=== PATIENT | male | born 1955 | race Caucasian/White ===

== ENCOUNTER 2016-08-25 21:36 | Emergency (ER) | payer OTHER ==
[2016-08-25] MEDS ORDERED: ALBUTEROL 8 GM INHALER INH STA (22:20)
[2016-08-25] MEDS ORDERED: DEXAMETHASONE 10 MG/ML VIAL PO STA (22:21)
[2016-08-25] MEDS ORDERED: guaiFENesin/CODEINE 5 ML UDC PO STA (22:22)
[2016-08-25] MEDS ORDERED: DEXAMETHASONE 10 MG/ML VIAL ONE (22:27)
[2016-08-25] MEDS ORDERED: guaiFENesin/CODEINE 5 ML UDC ONE (22:27)
[2016-08-25] MEDS ORDERED: ALBUTEROL 8 GM INHALER INH ONE (22:45)
[2016-08-26] MEDS ORDERED: AZITHROMYCIN 250 MG TABLET PO STA (00:10)
[2016-08-26] MEDS ORDERED: AZITHROMYCIN 250 MG TABLET PO ONE (00:12)
== END 2016-08-26 00:17 | disposition home or self-care (01) ==
DX: J44.9 Chronic obstructive pulmonary disease, unspecified (principal); R07.2 Precordial pain; F17.200 Nicotine dependence, unspecified, uncomplicated
CPT/HCPCS: 36415; 71020; 80053; 83690; 84484; 93005; 93010; 94640; 99283; 99284; A9270

== ENCOUNTER 2017-03-10 09:42 | Emergency (ER) | payer OTHER ==
[2017-03-10 10:37] LABS: BASOPHILS # (AUTO) 0.1 10^3/uL (0.0-0.1); BASOPHILS % (AUTO) 0.6 %; EOSINOPHILS % (AUTO) 0.1 %; HCT - HEMATOCRIT 46.7 % (42.0-52.0); HGB - HEMOGLOBIN 15.3 g/dL (14.0-18.0); MEAN CORPUSCULAR HGB CONC 32.8 g/dL (32.0-36.0); MEAN CORPUSCULAR VOLUME 85.3 fL (80.0-94.0); MEAN PLATELET VOLUME 9.2 fL (7.4-11.4); MONOCYTES # (AUTO) 0.4 10^3/uL (0.0-1.0); MONOCYTES % (AUTO) 2.7 %; NEUTROPHILS # (AUTO) 13.1 10^3/uL (1.5-6.6); NEUTROPHILS % (AUTO) 89.6 %; RED BLOOD COUNT 5.48 10^6/uL (4.70-6.10); RED CELL DISTRIBUTION WIDTH 14.4 % (12.0-15.0); UNCORRECTED WHITE BLOOD COUNT 14.6 x10^3/uL; WHITE BLOOD COUNT 14.6 x10^3/uL (4.8-10.8)
[2017-03-10] MEDS ORDERED: SODIUM CHLORIDE FLUSH 0.9% 10 ML SYRINGE IVP ONE ×3 (11:00→13:30)
--- NOTE | 2017-03-10 11:08 | ED Physician Documentation ---
PD HPI ABD PAIN - Stated complaint Stated Complaint: STOMACH PAIN - Chief complaint Chief Complaint: Abd Pain - History obtained from History obtained from: Patient - History of Present Illness Timing - onset: Yesterday Timing - details: Gradual onset, Still present, Still present in ED Quality: Aching, Pain Location: Periumbilical, LLQ Radiation: No: Left flank, Right flank Improved by: Position. No: Eating Worsened by: Moving, Position, Palpation. No: Eating, Breathing Associated symptoms: Nausea. No: Fever, Vomiting, Diarrhea Similar symptoms before: Diagnosis (diverticulitis by colonoscopy, per ) Recently seen: Not recently seen Review of Systems Constitutional: denies: Fever, Chills Nose: denies: Rhinorrhea / runny nose, Congestion Throat: denies: Sore throat Cardiac: denies: Chest pain / pressure Respiratory: denies: Cough GI: reports: Nausea. denies: Abdominal Pain, Vomiting, Diarrhea Musculoskeletal: denies: Neck pain, Back pain, Extremity swelling Neurologic: denies: Focal weakness, Numbness, Near syncope PD PAST MEDICAL HISTORY - Past Medical History Cardiovascular: None Respiratory: COPD Neuro: None Endocrine/Autoimmune: None GI: None : None HEENT: None Psych: None Musculoskeletal: None Derm: None - Past Surgical History Past Surgical History: No - Present Medications Home Medications: Ambulatory Orders Medication Instructions Recorded Confirmed Amox/Clav 875/125 [Augmentin] 1 each PO Q12H #10 tablet 03/10/17 Docusate Sodium 100 mg PO DAILY #15 capsule 03/10/17 HYDROcod/ACETAM 5/325 [Topping 5/325] 1 tab PO Q6H PRN #15 tablet 03/10/17 Naproxen 375 mg PO BID #15 tablet 03/10/17 - Allergies Allergies/Adverse Reactions: Allergies Allergy/AdvReac Type Severity Reaction Status Date / Time No Known Drug Allergies Allergy Verified 08/25/16 21:49 - Social History Does the pt smoke?: Yes Smoking Status: Current every day smoker Does the pt drink ETOH?: Yes Does the pt have substance abuse?: No - Immunizations Immunizations are current?: Yes - POLST Patient has POLST: No PD ED PE NORMAL - Vitals Vital signs reviewed: Yes - General General: Alert and oriented X 3, Well developed/nourished, Other (appears in some pain) - HEENT HEENT: Ears normal, Pharynx benign - Neck Neck: Supple, no meningeal sign, No adenopathy - Cardiac Cardiac: RRR, No murmur - Respiratory Respiratory: Clear bilaterally - Abdomen Abdomen: Normal bowel sounds, Soft, Non distended, No organomegaly, Other ( tender periumbilical to left abd without percussion nor rebound. No hernia. Not tender in epigastric area. ) Results - Vitals Vitals: Vital Signs - 24 hr 03/10/17 03/10/17 03/10/17 09:53 11:40 13:19 Temperature 36.8 C 36.3 C L 36.9 C Heart Rate 65 61 61 Respiratory 14 16 15 Rate Blood Pressure 141/95 H 143/101 H 119/86 H O2 Saturation 100 99 98 Oxygen O2 Source Room air - Labs Labs: Laboratory Tests 03/10/17 03/10/17 03/10/17 10:17 10:17 11:05 WBC 14.6 H RBC 5.48 Hgb 15.3 Hct 46.7 MCV 85.3 MCH 28.0 MCHC 32.8 RDW 14.4 Plt Count 229 MPV 9.2 Neut # 13.1 H Lymph # 1.0 L [place] # 0.4 Eos # 0.0 Baso # 0.1 Absolute Nucleated RBC 0.01 Nucleated RBC % 0.0 Sodium 136 Potassium 3.9 Chloride 101 Carbon Dioxide 24 Anion Gap 11.0 BUN 19 Creatinine 0.9 Estimated GFR (MDRD) 86 L Glucose 125 H Calcium 9.0 Total Bilirubin 1.1 H AST 19 ALT 21 Alkaline Phosphatase 70 Total Protein 7.2 Albumin 4.0 Globulin 3.2 Albumin/Globulin Ratio 1.3 Lipase 25 Urine Color YELLOW Urine Clarity CLEAR Urine pH 6.0 Ur Specific [place] 1.025 Urine Protein NEGATIVE Urine Glucose (UA) NEGATIVE Urine Ketones TRACE Urine Occult Blood NEGATIVE Urine Nitrite NEGATIVE Urine Bilirubin NEGATIVE Urine Urobilinogen 0.2 (NORMAL) Ur Leukocyte Esterase NEGATIVE Ur Microscopic Review NOT INDICATED Urine Culture Comments NOT INDICATED - Rads (name of study) abd/pelvic CT Radiology: Prelim report reviewed (thickening of gastric wall; otherwise normal) PD MEDICAL DECISION MAKING - ED course Complexity details: reviewed results (no acute process seen; his pain is not in area of stomach so think the gastric thickening is negative. he had had EGD without findings last year. Had diverticulitis as cause of prior episode, though had not shown on studies, so given his pain in mid to left abd and elevated WBC, I would consider early diverticulitis. CT would not be 100% sensitive for this finding. ), considered differential, d/w patient Departure - Departure Disposition: 01 Home, Self Care Clinical Impression: Abdominal pain Qualifiers: Abdominal location: periumbilical Qualified Code(s): R10.33 - Periumbilical pain Clinical Impression: (Ruled Out): Appendicitis Condition: Stable Record reviewed to determine appropriate education?: Yes Instructions: ED Abdominal Pain Unkn Cause Prescriptions: Amox/Clav 875/125 [Augmentin] 1 each PO Q12H #10 tablet Docusate Sodium 100 mg PO DAILY #15 capsule HYDROcod/ACETAM 5/325 [Topping 5/325] 1 tab PO Q6H PRN #15 tablet PRN Reason: Pain Naproxen 375 mg PO BID #15 tablet Comments: Your CT scan does not show an obvious cause of the pain. There may be just some inflammation throughout the colon. However there would be concern for early infection given the elevated white count on your blood test. The appendix and gallbladder are seen well and are normal. There is no obvious diverticulitis. We will go with naproxen twice daily for a week as an anti- inflammatory. Docusate stool softener daily for 1-2 weeks. Add Augmentin twice daily for concern of infection. Add hydrocodone if needed for pain. Recheck if not improved over the next 2-3 days and return sooner if worsening symptoms. Discharge Date/Time: 03/10/17 13:45
[2017-03-10 11:21] LABS: BILIRUBIN,URINE NEGATIVE (NEGATIVE)
[2017-03-10 11:24] LABS: UA CHARGE (STRIP ONLY) YES; UR CULTURE IF IND NOT INDICATED
[2017-03-10] MEDS ORDERED: ONDANSETRON 4 MG/2 ML VIAL IVP STA (11:27)
[2017-03-10] MEDS ORDERED: SODIUM CHLORIDE 0.9% 1,000 ML IV ONE (11:27)
[2017-03-10] MEDS ORDERED: HYDROmorphone 1 MG/ML CARPUJECT IVP STA (11:28)
[2017-03-10 11:33] LABS: ALBUMIN/GLOBULIN RATIO 1.3 (1.0-2.2); BILIRUBIN,TOTAL 1.1 mg/dL (0.2-1.0); CREATININE 0.9 mg/dL (0.6-1.2); POTASSIUM 3.9 mmol/L (3.5-5.0); TOTAL PROTEIN 7.2 g/dL (6.7-8.2)
[2017-03-10] MEDS ORDERED: ONDANSETRON 4 MG/2 ML VIAL ONE (11:37)
[2017-03-10] MEDS ORDERED: HYDROmorphone 1 MG/ML SYRINGE ONE (11:37)
[2017-03-10] MEDS ORDERED: IOPAMIDOL-300 100 ML VIAL ONE (11:42)
[2017-03-10] MEDS ORDERED: IOPAMIDOL-300 100 ML VIAL IVP ONE (12:06)
--- NOTE | 2017-03-10 12:34 | CT Preliminary Report ---
Exam: CT Abdomen/Pelvis W/ IMPRESSION: Unchanged gastric antral wall thickening suggestive of gastritis though conceivably tumor could have a similar appearance. Consider further evaluation with upper endoscopy. [facility] SITE ID: [id number]
--- NOTE | 2017-03-10 12:34 | CT Report ---
EXAM: CT ABDOMEN AND PELVIS EXAM DATE: 03/10/2017 11:53 AM. CLINICAL HISTORY: Mid abd pain since yesterday. COMPARISONS: None. TECHNIQUE: Routine helical CT imaging was performed through the abdomen and pelvis. IV contrast: 100 mL Isovue-300. Enteric contrast: No. Reconstructions: Coronal and sagittal. In accordance with CT protocol optimization, one or more of the following dose reduction techniques w ere utilized for this exam: automated exposure control, adjustment of mA and/or KV based on patient s ize, or use of iterative reconstructive technique. FINDINGS: Lung Bases: Mild bibasilar dependent atelectasis and/or scarring. Normal heart size. No pericardial e ffusion. Liver: Normal Gallbladder/Bile Ducts: Unremarkable. Spleen: Normal. Pancreas: Normal. Adrenal Glands: Normal. Kidneys: Stable subcentimeter small and large bowel, including the appendix are normal in caliber wit hout evidence of inflammation or obstruction. Hypoattenuating lesion in the upper pole of the right k idney, too small to definitively characterize but statistically a cyst. Normal left kidney. Peritoneal Cavity/Bowel: There is unchanged moderate diffuse wall thickening of the gastric antrum, a pproximately 1.4 cm in thickness, similar to prior study. No ascites or pneumoperitoneum. No abdomina l or pelvic lymphadenopathy. Pelvic Organs: Urinary bladder is incompletely distended. Vasculature: Mild aortobiiliac atherosclerosis without aneurysm Bones: Severe bilateral facet osteoarthritis L5-S1. Moderate bilateral sacroiliac osteoarthritis. Other: None. IMPRESSION: Unchanged gastric antral wall thickening suggestive of gastritis though conceivably tumor could have a similar appearance. Consider further evaluation with upper endoscopy. [facility] Referring Provider Line: [phone] SITE ID: [id number]
[2017-03-10] MEDS ORDERED: KETOROLAC 60 MG/2 ML VIAL IVP STA (13:16)
[2017-03-10] MEDS ORDERED: AMOX/CLAV 875 MG/125 MG TABLET PO STA (13:17)
[2017-03-10 13:19] VITALS: BP 119/86
[2017-03-10] MEDS ORDERED: AMOX/CLAV 875 MG/125 MG TABLET PO ONE (13:30)
[2017-03-10] MEDS ORDERED: KETOROLAC 30 MG/ML VIAL ONE (13:30)
== END 2017-03-10 13:45 | disposition home or self-care (01) ==
LOC: ED 09:42
DX: R10.33 Periumbilical pain (principal); F17.200 Nicotine dependence, unspecified, uncomplicated
CPT/HCPCS: 36415; 74177; 80053; 81003; 83690; 85025; 96361; 96374; 96375; 99284; A9270; J1170; Q9967; 81001; 87086

== ENCOUNTER 2018-11-27 21:33 | Emergency (ER) | payer OTHER ==
--- NOTE | 2018-11-27 21:48 | ED Physician Documentation ---
PD HPI CHEST PAIN - Stated complaint Stated Complaint: CHEST PX - Chief complaint Chief Complaint: Cardiac - History obtained from History obtained from: Patient - History of Present Illness Timing - onset: How many weeks ago (1.5) Timing - details: Gradual onset, Intermittant, Waxing and waning Pain level now: 7 Quality: Pain Location: Substernal Radiation: Right upper extremity Improved by: Nothing Worsened by: Other (no inciting nor exacerbating factors) Associated symptoms: Shortness of air (mild). No: Nausea, Vomiting Recently seen: Not recently seen Review of Systems Constitutional: denies: Fever, Chills, Sweats Cardiac: reports: Chest pain / pressure, Calf pain (left, intermittently and associated temporally with working). denies: Palpitations, Pedal edema Respiratory: reports: Dyspnea (mild, resolved). denies: Cough GI: reports: Reviewed and negative Musculoskeletal: denies: Extremity swelling PD PAST MEDICAL HISTORY - Past Medical History Cardiovascular: None Respiratory: COPD Endocrine/Autoimmune: None GI: None : None HEENT: None Psych: None Musculoskeletal: None Derm: None - Past Surgical History Past Surgical History: No - Present Medications Home Medications: Ambulatory Orders Medication Instructions Recorded Confirmed Amox/Clav 875/125 [Augmentin] 1 each PO Q12H #10 tablet 03/10/17 Docusate Sodium 100 mg PO DAILY #15 capsule 03/10/17 HYDROcod/ACETAM 5/325 [[place] 5/325] 1 tab PO Q6H PRN #15 tablet 03/10/17 Naproxen 375 mg PO BID #15 tablet 03/10/17 - Allergies Allergies/Adverse Reactions: Allergies Allergy/AdvReac Type Severity Reaction Status Date / Time No Known Drug Allergies Allergy Verified 11/27/18 21:41 - Social History Does the pt smoke?: Yes Smoking Status: Current every day smoker Does the pt drink ETOH?: Yes Does the pt have substance abuse?: No - Immunizations Immunizations are current?: Yes - POLST Patient has POLST: No PD ED PE NORMAL - Vitals Vital signs reviewed: Yes - General General: Alert and oriented X 3, No acute distress, Well developed/nourished - HEENT HEENT: Moist mucous membranes - Neck Neck: Supple, no meningeal sign - Cardiac Cardiac: RRR, No murmur, No gallop, No rub - Respiratory Respiratory: No respiratory distress, Clear bilaterally - Abdomen Abdomen: Soft, Non tender - Derm Derm: Normal color, Warm and dry - Extremities Extremities: No edema Results - Vitals Vitals: Oxygen O2 Source Room air - EKG (time done) No standard instances Rate: Rate (enter#) (65) Rhythm: NSR Martha: LAD Intervals: Normal [place] Ischemia: Normal ST segments Compare to prior EKG: Unchanged from prior EKG (08/25/16) - Labs Labs: Laboratory Tests 11/27/18 11/27/18 11/27/18 21:46 21:46 22:34 WBC 7.8 RBC 5.15 Hgb 14.5 Hct 45.7 MCV 88.7 MCH 28.2 MCHC 31.7 L RDW 14.6 Plt Count 208 MPV 10.6 Neut # (Auto) 4.2 Lymph # (Auto) 3.0 [place] # (Auto) 0.5 Eos # (Auto) 0.1 Baso # (Auto) 0.0 Absolute Nucleated RBC 0.00 Band Neuts % (Manual) Not Reportable Abnorm Lymph % (Manual) Not Reportable Nucleated RBC % 0.0 Neutrophils # (Manual) Not Reportable Lymphocytes # (Manual) Not Reportable Monocytes # (Manual) Not Reportable Eosinophils # (Manual) Not Reportable Basophils # (Manual) Not Reportable Differential Comment MANUAL=AUTO DIFF Manual Slide Review Indicated Platelet Estimate NORMAL (130-450,000) Platelet Morphology NORMAL APPEARANCE RBC Morph Micro Appear NORMAL APPEARANCE D-Dimer Sodium 137 Potassium 3.7 Chloride 100 L Carbon Dioxide 24 Anion Gap 13.0 BUN 23 H Creatinine 0.9 Estimated GFR (MDRD) 86 L Glucose 88 Calcium 9.2 Total Bilirubin 1.0 AST 23 ALT 26 Alkaline Phosphatase 59 Troponin I < 0.04 Total Protein 7.5 Albumin 4.0 Globulin 3.5 Albumin/Globulin Ratio 1.1 Lipase 31 11/27/18 22:34 WBC RBC Hgb Hct MCV MCH MCHC RDW Plt Count MPV Neut # (Auto) Lymph # (Auto) [place] # (Auto) Eos # (Auto) Baso # (Auto) Absolute Nucleated RBC Band Neuts % (Manual) Abnorm Lymph % (Manual) Nucleated RBC % Neutrophils # (Manual) Lymphocytes # (Manual) Monocytes # (Manual) Eosinophils # (Manual) Basophils # (Manual) Differential Comment Manual Slide Review Platelet Estimate Platelet Morphology RBC Morph Micro Appear D-Dimer 504.6 H Sodium Potassium Chloride Carbon Dioxide Anion Gap BUN Creatinine Estimated GFR (MDRD) Glucose Calcium Total Bilirubin AST ALT Alkaline Phosphatase Troponin I Total Protein Albumin Globulin Albumin/Globulin Ratio Lipase - Rads (name of study) chest xray Radiology: Prelim report reviewed, See rad report PD MEDICAL DECISION MAKING - ED course Complexity details: reviewed results, re-evaluated patient, considered differential, d/w patient Departure - Departure Disposition: Home, Self Care Clinical Impression: Chest pain Qualifiers: Chest pain type: unspecified Qualified Code(s): R07.9 - Chest pain, unspecified Condition: Good Health Concerns: chest pain Plan of Treatment: follow up with primary care provider, return to the emergency department if worse Care Goals: prevention of symptom recurrence Assessment: see diagnosis Instructions: ED Chest Pain Atypical Unkn Cause Follow-Up: BRUNA MARK [Primary Care Provider] - Forms: Activity restrictions Discharge Date/Time: 11/28/18 01:52
[2018-11-27 22:02] LABS: BASOPHILS % (AUTO) 0.4 %; HGB - HEMOGLOBIN 14.5 g/dL (14.0-18.0); PLT - PLATELET COUNT 208 10^3/uL (130-450); RED CELL DISTRIBUTION WIDTH 14.6 % (12.0-15.0)
--- NOTE | 2018-11-27 22:05 | XRAY Report ---
Reason: CP Procedure Date: 11/27/2018 Accession Number: [id number] / [id number] Procedure: XR - Chest 1 View X-Ray CPT Code: 20492 FULL RESULT: EXAM: CHEST RADIOGRAPHY EXAM DATE: 11/27/2018 09:55 PM. CLINICAL HISTORY: CP. COMPARISON: CHEST 2 VIEW PA/LAT 08/25/2016 10:23 PM. TECHNIQUE: 1 view. FINDINGS: Lungs/Pleura: No focal opacities evident. No pleural effusion. No pneumothorax. Mediastinum: Within exam limitations, the cardiomediastinal contour is normal. Other: None. IMPRESSION: Normal single view chest. [facility]
[2018-11-27 22:07] LABS: EOSINOPHILS # (AUTO) 0.1 10^3/uL (0.0-0.7); EOSINOPHILS % (AUTO) 1.2 %; LYMPHOCYTES % (AUTO) 38.3 %; MEAN CORPUSCULAR HEMOGLOBIN 28.2 pg (27.0-31.0); MEAN CORPUSCULAR HGB CONC 31.7 g/dL (32.0-36.0); MEAN CORPUSCULAR VOLUME 88.7 fL (80.0-94.0); MEAN PLATELET VOLUME 10.6 fL (7.4-11.4); MONOCYTES # (AUTO) 0.5 10^3/uL (0.0-1.0); MONOCYTES % (AUTO) 6.4 %; NEUTROPHILS # (AUTO) 4.2 10^3/uL (1.5-6.6); NEUTROPHILS % (AUTO) 53.4 %; RED BLOOD COUNT 5.15 10^6/uL (4.70-6.10); WHITE BLOOD COUNT 7.8 x10^3/uL (4.8-10.8)
[2018-11-27 22:51] LABS: ALBUMIN/GLOBULIN RATIO 1.1 (1.0-2.2); CALCIUM 9.2 mg/dL (8.5-10.3); CREATININE 0.9 mg/dL (0.6-1.2); TOTAL PROTEIN 7.5 g/dL (6.7-8.2)
[2018-11-27 22:53] LABS: PLATELET MORPHOLOGY NORMAL APPEARANCE (NORMAL); RBC MORPHOLOGY (MULTIPLE) NORMAL APPEARANCE (NORMAL)
[2018-11-27 22:54] LABS: DIFFERENTIAL COMMENT MANUAL=AUTO DIFF; PLATELET ESTIMATE, MANUAL NORMAL (130-450,000) (NORMAL)
[2018-11-27] MEDS ORDERED: IOVERSOL 320 100 ML VIAL IVP ONE (23:55)
[2018-11-28] MEDS ORDERED: IOVERSOL 320 100 ML VIAL IVP ONE (00:16)
--- NOTE | 2018-11-28 00:44 | CT Report ---
Reason: chest pain Procedure Date: 11/28/2018 Accession Number: [id number] / [id number] Procedure: CT - ANGIO CHEST W/WO CPT Code: FULL RESULT: EXAM: CT ANGIOGRAM CHEST EXAM DATE: 11/28/2018 12:17 AM. CLINICAL HISTORY: Chest pain. COMPARISON: None. TECHNIQUE: Routine helical imaging was performed through the chest in the pulmonary arterial phase. IV Contrast: Nonionic. Reconstructions: Coronal 3-D MIP reconstructions.Sagittal and coronal. In accordance with CT protocol optimization, one or more of the following dose reduction techniques were utilized for this exam: automated exposure control, adjustment of mA and/or KV based on patient size, or use of iterative reconstructive technique. FINDINGS: Pulmonary Arteries: Diagnostic quality: Adequate through the segmental arteries. No evidence for acute or chronic pulmonary emboli. No evidence of right heart strain. Lungs/Pleura: Emphysema. Mild bibasilar atelectasis. No peg alveolar consolidation. No pleural effusion. No pneumothorax. Mediastinum: Heart size is normal. Coronary artery calcifications. Normal sized lymph nodes. Thoracic Aorta: Minimally enhanced. Mild atherosclerosis. Ascending aorta measures 3.6 cm. No obvious dissection. Upper Abdomen: Unremarkable. Other: None. IMPRESSION: 1. No pulmonary emboli seen. 2. Emphysematous changes. 3. Coronary artery calcifications. [facility]
[2018-11-28 00:54] VITALS: BP 158/91
== END 2018-11-28 01:52 | disposition home or self-care (01) ==
LOC: ED 21:33
DX: R07.9 Chest pain, unspecified (principal); F17.200 Nicotine dependence, unspecified, uncomplicated
CPT/HCPCS: 36415; 71045; 71275; 80053; 83690; 84484; 85025; 85379; 93005; 99283; Q9967